=== PATIENT | male | born 1985 | race Caucasian/White ===

== ENCOUNTER 2021-12-17 11:16 | Emergency (ER) | payer BC, OTHER ==
[~2021-12-17] VITALS: Ht 170.2 cm; Wt 99.8 kg
[2021-12-17] MEDS ORDERED: NAPROXEN 250 MG TAB PO ONE (12:30)
[2021-12-17] MEDS ORDERED: METHOCARBAMOL 500 MG TAB PO ONE (12:30)
[2021-12-17] MEDS ORDERED: HYDROCODONE/APAP 10MG-325MG TAB PO ONE (12:30)
[2021-12-17] MEDS ORDERED: PREDNISONE 20 MG TAB PO ONE (14:00)
== END 2021-12-17 14:17 | disposition home or self-care (01) ==
LOC: ER 11:22
DX: M54.2 Cervicalgia (principal); M54.6 Pain in thoracic spine; M54.50 Low back pain, unspecified; S20.211A Contusion of right front wall of thorax, initial encounter; W01.0XXA Fall on same level from slipping, tripping and stumbling without subsequent striking against object, initial encounter; Y92.89 Other specified places as the place of occurrence of the external cause; G40.909 Epilepsy, unspecified, not intractable, without status epilepticus; F17.210 Nicotine dependence, cigarettes, uncomplicated
CPT/HCPCS: 71101; 72050; 72070; 72110; 99283; J7512

== ENCOUNTER 2022-02-09 16:13 | Emergency (ER) | payer BC, OTHER ==
[~2022-02-09] VITALS: Ht 170.2 cm; Wt 108.9 kg
[2022-02-09] MEDS ORDERED: Morphine 2mg Syringe 2 MG/ML SYR IM ONE (18:45)
[2022-02-09] MEDS ORDERED: Morphine 2mg Syringe 2 MG/ML SYR ONE (18:51)
[2022-02-09] MEDS ORDERED: HYDROCODON-ACE1 EA11 PO (18:57)
== END 2022-02-09 19:15 | disposition home or self-care (01) ==
LOC: ER 17:30
DX: S52.592A Other fractures of lower end of left radius, initial encounter for closed fracture (principal); W06.XXXA Fall from bed, initial encounter; Y93.84 Activity, sleeping; Y92.89 Other specified places as the place of occurrence of the external cause; G40.909 Epilepsy, unspecified, not intractable, without status epilepticus
CPT/HCPCS: 29125; 71045; 73110; 99284; J2270